=== PATIENT | female | born 1990 ===

== ENCOUNTER 2023-12-13 14:15 | Inpatient (IN) | payer OTHER ==
[~2023-12-13] VITALS: Ht 157.5 cm; Wt 3.2 kg
[2023-12-24 16:14] VITALS: BP 118/85
[2023-12-24] MEDS ORDERED: MORPHINE SULFATE 4 MG/ML CARTRIDGE IV PRN (16:45)
[2023-12-24 17:11] LABS: HEMOGLOBIN 12.6 g/dL (12.0-15.00); MEAN CELL VOLUME 91.1 fL (80.00-100.00); MEAN CORPUSCULAR HEMOGLOBIN 31.9 pg (27.00-32.0); PLATELET COUNT 151 K/uL (150-450); RED BLOOD COUNT 3.95 M/uL (4.00-6.00); RED CELL DISTRIBUTION WIDTH 14.7 % (11.5-14.5)
[2023-12-24] MEDS ORDERED: MAGNESIUM400 MG PO (17:13)
[2023-12-24] MEDS ORDERED: SYNTHROID75 MCG PO (17:13)
[2023-12-24 17:15] LABS: PH,URINE 5.5 (5.0-8.0); URINE APPEARANCE Clear; URINE BILIRRUBIN Negative (NEGATIVE); URINE BLOOD Negative; URINE COLOR Yellow; URINE GLUCOSE Negative (NEGATIVE); URINE KETONE Negative (NEGATIVE); URINE LEUKOCYTE Negative; URINE NITRATE Negative; URINE PROTEIN Negative (NEGATIVE); URINE UROBILINOGEN 0.2 E.U./dl
[2023-12-24 17:16] LABS: URINE BACTERIA 961.3 uL (0.0-1933); URINE WBC 9.7 uL (0.0-23.2)
[2023-12-24 17:17] LABS: URINE CAST 0.15 uL (0.0-1.40); URINE RBC 0.1 uL (0.0-20.8)
[2023-12-24 17:32] LABS: INR < 0.93; PARTIAL THROMBOPLASTIN TIME 28.5 SECONDS (22.0-34.0); PROTHROMBIN TIME 9.7 SECONDS (9.0-11.5)
[2023-12-24 17:37] LABS: ALBUMIN 3.5 gm/dL (3.4-5.0); BILIRUBIN TOTAL 0.3 mg/dL (0.3-1.2); CALCIUM 9.1 mg/dL (8.5-10.1); CREATININE SERUM 0.62 mg/dL (0.55-1.02); GFR 110.19; GLOBULINA 4.2 G/DL (2.4-3.5); POTASSIUM 3.85 mEq/L (3.5-5.1); TOTAL PROTEIN 7.7 gm/dL (6.4-8.2)
[2023-12-24 19:58] VITALS: BP 107/65
[2023-12-25] VITALS: BP 104/63
[2023-12-25 04:47] VITALS: BP 101/72
[2023-12-25] MEDS ORDERED: LEVOTHYROXINE SODIUM 75 MCG TABLET PO SCH (06:00)
[2023-12-25 07:36] VITALS: BP 112/80
[2023-12-25] MEDS ORDERED: OXYTOCIN 500 ML IV ONE (07:45)
[2023-12-25 11:16] VITALS: BP 113/81
[2023-12-25] MEDS ORDERED: CEFAZOLIN SODIUM 1,000 MG VIAL ONE (14:23)
[2023-12-25] MEDS ORDERED: CEFAZOLIN SODIUM 1,000 MG VIAL IV NR (14:30)
[2023-12-25] MEDS ORDERED: OXYTOCIN 10 UNITS/ML VIAL ONE (14:33)
[2023-12-25] MEDS ORDERED: ERYTHROMYCIN BASE OPHT 1GM EACH TUBE OP ONE (14:33)
[2023-12-25] MEDS ORDERED: RINGERS SOLUTION,LACTATED 1,000 ML IV SCH (16:15)
[2023-12-25] MEDS ORDERED: OXYTOCIN 1,000 ML IV ONE (16:15)
[2023-12-25] MEDS ORDERED: MORPHINE SULFATE 4 MG/ML CARTRIDGE IV PRN (16:15)
[2023-12-25] MEDS ORDERED: SIMETHICONE 125 MG CAPSULE PO SCH (17:00)
[2023-12-25] MEDS ORDERED: GABAPENTIN 300 MG CAPSULE PO SCH (17:00)
[2023-12-25] MEDS ORDERED: MORPHINE SULFATE 4 MG/ML VIAL IV ONE (17:10)
[2023-12-25] MEDS ORDERED: ACETAMINOPHEN 500 MG GEL..CAP PO SCH (18:00)
[2023-12-25] MEDS ORDERED: KETOROLAC TROMETHAMINE 30 MG VIAL IV SCH (18:00)
[2023-12-25] MEDS ORDERED: ONDANSETRON HCL 2 MG/ML VIAL IV SCH (18:00)
[2023-12-25] MEDS ORDERED: SIMETHICONE 125 MG CAPSULE PO ONE (18:28)
[2023-12-25] MEDS ORDERED: GABAPENTIN 300 MG CAPSULE PO ONE (18:29)
[2023-12-25] MEDS ORDERED: KETOROLAC TROMETHAMINE 30 MG VIAL ONE (18:29)
[2023-12-25] MEDS ORDERED: ACETAMINOPHEN 500 MG GEL..CAP PO ONE (18:29)
[2023-12-25 21:58] VITALS: BP 122/73
[2023-12-26] VITALS: BP 107/64
[2023-12-26 04:30] VITALS: BP 98/61
[2023-12-26 06:55] LABS: HEMATOCRIT 27.5 % (36.0-45.00); MEAN CELL VOLUME 93.1 fL (80.00-100.00); MEAN CORPUSCULAR HGB CONC 35.2 g/dl (32.0-36.0); RED BLOOD COUNT 2.96 M/uL (4.00-6.00); RED CELL DISTRIBUTION WIDTH 14.1 % (11.5-14.5)
[2023-12-26 07:16] LABS: MEAN CORPUSCULAR HEMOGLOBIN 32.7 pg (27.00-32.0)
[2023-12-26 07:19] LABS: HEMOGLOBIN 9.7 g/dL (12.0-15.00); PLATELET COUNT 112 K/uL (150-450)
[2023-12-26] MEDS ORDERED: KETOROLAC TROMETHAMINE 10 MG TABLET PO SCH (08:00)
[2023-12-26] MEDS ORDERED: OxyCODONE HCL 5 MG TABLET (ROXICODONE) PO PRN (08:00)
[2023-12-26 09:22] VITALS: BP 109/71
[2023-12-26 16:56] VITALS: BP 107/87
[2023-12-27] VITALS: BP 144/77
[2023-12-27 07:55] VITALS: BP 118/72
[2023-12-27] MEDS ORDERED: IRON/V.C/V.B12/FOLIC A/VIT. E 1 CAPL CAPLET PO SCH (09:00)
[2023-12-27 13:22] VITALS: BP 127/81
[2023-12-27 18:18] VITALS: BP 120/77
[2023-12-28] VITALS: BP 129/82
[2023-12-28 07:47] VITALS: BP 120/76
[2023-12-28] MEDS ORDERED: KETO10TA2 PO (09:06)
[2023-12-28] MEDS ORDERED: OXYCODON-ACETA1 EACH PO (09:07)
[2023-12-28 14:40] VITALS: BP 121/77
== END 2023-12-28 15:39 | disposition home or self-care (01) | DRG 788 ==
LOC: LDR 12-24 14:42 → OB/GYN 12-24 14:42 → LDR 12-24 14:51 → O/R 12-25 15:18 → OB/GYN 12-25 15:53
PROVIDERS: Obstetrics & Gynecology; Obstetrics & Gynecology Gynecology; ADMIT Obstetrics & Gynecology; ATTEND Obstetrics & Gynecology
PROC: 4A1HXCZ Monitoring of Products of Conception, Cardiac Rate, External Approach (ICD-10-PCS; 2023-12-24)
PROC: 3E033VJ Introduction of Other Hormone into Peripheral Vein, Percutaneous Approach (ICD-10-PCS; 2023-12-25)
PROC: 10D00Z1 Extraction of Products of Conception, Low, Open Approach (ICD-10-PCS; principal; 2023-12-25 14:15)
DX: O61.0 Failed medical induction of labor (principal); Z3A.40 40 weeks gestation of pregnancy; Z37.0 Single live birth; Z20.822 Contact with and (suspected) exposure to COVID-19

== ENCOUNTER 2023-12-17 09:36 | Outpatient (CLI) | payer OTHER | END 2023-12-17 11:33 | disposition home or self-care (01) | LOC: NST 09:36 | PROVIDERS: ATTEND Obstetrics & Gynecology | DX: Z34.83 Encounter for supervision of other normal pregnancy, third trimester (principal) ==

== ENCOUNTER 2023-12-20 14:09 | Outpatient (CLI) | payer OTHER | END 2023-12-20 15:30 | disposition home or self-care (01) | LOC: NST 14:09 | PROVIDERS: ATTEND Obstetrics & Gynecology Gynecology | DX: Z34.83 Encounter for supervision of other normal pregnancy, third trimester (principal) ==